=== PATIENT | female | born 1955 | race Caucasian/White ===

== ENCOUNTER 2021-02-14 18:57 | Inpatient (IN) | payer OTHER ==
[~2021-02-14] VITALS: Ht 152.4 cm; Wt 113.4 kg
[2021-02-14 19:38] LABS: HEMOGLOBIN 14.1 gm/dl (12.3-15.3); RED BLOOD COUNT 4.56 M/UL (4.00-5.10)
[2021-02-14 20:04] LABS: BUN/CREATININE RATIO 22 (0-10)
[2021-02-15] MEDS ORDERED: LATANOPROST2.5 ML OP (02:35)
[2021-02-15] MEDS ORDERED: TIMOPTIC 0.5% OP5 ML OU (02:36)
[2021-02-15] MEDS ORDERED: ALPRAZOLAM XR1 MG PO (02:37)
[2021-02-15] MEDS ORDERED: GABAPENTIN300 MG PO (02:41)
[2021-02-15] MEDS ORDERED: HYDROCHLOROTH12.5 MG PO (02:42)
[2021-02-15] MEDS ORDERED: MIRAPEX ER3 MG PO (02:46)
[2021-02-15] MEDS ORDERED: TIROSINT50 MCG PO (02:46)
[2021-02-15] MEDS ORDERED: ELAVIL 50 MG TA50 MG PO (02:48)
[2021-02-15] MEDS ORDERED: MYRBETRIQ50 MG PO (02:48)
[2021-02-15] MEDS ORDERED: POTASSIUM CHLO20 ME1 PO (02:55)
[2021-02-15] MEDS ORDERED: DULOXETINE HCL60 MG PO (03:12)
[2021-02-15] MEDS ORDERED: TOPAMAX 25 MG T25 MG PO (03:12)
[2021-02-15] MEDS ORDERED: ESZOPICLONE3 MG PO (03:14)
[2021-02-15] MEDS ORDERED: PREMARIN VAG CR30 GM EXT (03:15)
[2021-02-15] MEDS ORDERED: ZANAFLEX 4 MG TA4 MG PO (03:16)
[2021-02-15] MEDS ORDERED: DITROPAN 5 MG TA5 MG PO (03:17)
[2021-02-15] MEDS ORDERED: MAGNESIUM250 MG PO (03:36)
[2021-02-15] MEDS ORDERED: FISH OIL 1,2001 EAC1 PO (03:37)
[2021-02-15] MEDS ORDERED: CALCIUM CITRAT250 MG PO (03:39)
[2021-02-15] MEDS ORDERED: L-LYSINE500 MG PO (03:39)
[2021-02-15] MEDS ORDERED: FOLIC ACID0.8 MG PO (03:40)
[2021-02-15] MEDS ORDERED: VITAMIN C500 M4 PO (03:41)
[2021-02-15] MEDS ORDERED: VITAMIN B-121000 MCG PO (03:42)
[2021-02-15] MEDS ORDERED: VITAMIN B-1100 M1 PO (03:43)
[2021-02-15] MEDS ORDERED: VITAMIN D350 MCG PO (03:44)
[2021-02-15] MEDS ORDERED: MELATONIN3 MG PO (03:52)
--- NOTE | 2021-02-16 05:38 | NUR ---
ATTEMPTED TO CALL DR RUSH X2 IN REGARDS TO PATIENT 3 BEAT RUN OF V [facility]. PATIENT AT THIS TIME RESTING IN BED ON RA WITH PULSE OX 98%, TEMP 98.7, RESP 20, TELE IN USE SINUS WITH HEART RATE IN THE 70S, AND BP 150/84. PATIENT HAS NO COMPLAINTS OF SOA OR CHEST PAIN AT THIS TIME. CALL IGHT IN REACH BED IN LOW POSITION AND SIDE RAILS ELEVATED. LEFT MESSAGE ON PROVIDERS PHONE AND AM CURRENTLY AWAITING CALL BACK IN REGARDS TO PATIENT.
[2021-02-16 07:37] LABS: HEMOGLOBIN 13.6 gm/dl (12.3-15.3); RED BLOOD COUNT 4.67 M/UL (4.00-5.10); WHITE BLOOD COUNT 8.7 K/UL (4.5-11.0)
[2021-02-16 10:35] LABS: BUN/CREATININE RATIO 23 (0-10)
[2021-02-17 11:17] LABS: RED BLOOD COUNT 5.13 M/UL (4.00-5.10)
[2021-02-17 11:20] LABS: HEMOGLOBIN 15.7 gm/dl (12.3-15.3); WHITE BLOOD COUNT 13.1 K/UL (4.5-11.0)
[2021-02-17 12:00] LABS: BUN/CREATININE RATIO 27 (0-10)
--- NOTE | 2021-02-17 13:11 | NUR ---
[id number] CALLED NEUROLOGY OFFICE REGAURDING PTS CONDITION, DR HOU IN [facility] OFFICE, CALLED DR LAYTON AND LEFT MESSAGE ON HIS CELL PHONE
--- NOTE | 2021-02-17 18:05 | NUR ---
DR LAYTON HERE SEEN PT, NOTE IN PROGRESS NOTE OF CHART
--- NOTE | 2021-02-18 05:14 | NUR ---
0200 02/18/21 PATIENT WAKES UP AND IS ALERT AND ORIENTED. REMOVE BIPAP AND PATIENT BEGINS TO TALK WITH MYSELF AND OTHER NURSING STAFF. PATIENT STATES THAT SHE KNEW WHAT HAS BEEN GOING ON TODAY AND ANSERED QUESTIONS APPROPRIATELY. PATIENT DOES HOWEVER HAVE EXTREME DYSPHASIA AND STUTTERS HORRIBLE WITH TRYING TO SPEAK. PATIENT ALSO STATES THAT SHE IS HUNGRY. GAVE PATIENT A SIP OF WATER AND PATIENT SWALLOWED WATER FINE WITH NO COUGH NOTED. PATIENT WAS ALSO ABLE TO EAT PUDDING WITH NO COUGH NOTED. PATIENT COULD STICK OUT HER TOUNGE MOVE IT FROM SIDE TO SIDE AND UP AND DOWN. PATIENT GAG REFLEX WAS INTACT WHILE MOUTH CARE WAS PROVIDED. PATIENT THEN TOOK A FEW BITES OF TURKEY SANDWHICH. NO FACIAL DROOP WAS NOTED. PATIENT ALSO HAD VERY JERKY AND UNCORDINATED MOVMENTS WHEN ATTEMPTING TO FEED HERSELF A SADWHICH. PATIENT REQUEST THAT WE CALL HER AND NOTIFY THEM THAT SHE IS NOW ABLE TO TALK AGAIN. AFTER AWHILE PATIENT STATES THAT SHE IS TIRED. CPAP FROM HOME WAS PLACED ON PATIENT. CALL LIGHT IN REACH BED IN LOW POSITION AND SIDE RAILS ELEVATED. TELEMTRY IN USE SINUS 90S O2 SAT WAS 96%
[2021-02-18 10:40] LABS: HEMOGLOBIN 15.4 gm/dl (12.3-15.3); WHITE BLOOD COUNT 12.6 K/UL (4.5-11.0)
[2021-02-18 11:10] LABS: BUN/CREATININE RATIO 34 (0-10)
[2021-02-19 05:11] LABS: HEMOGLOBIN 15.6 gm/dl (12.3-15.3); RED BLOOD COUNT 5.09 M/UL (4.00-5.10); WHITE BLOOD COUNT 15.1 K/UL (4.5-11.0)
[2021-02-19 05:42] LABS: BUN/CREATININE RATIO 36 (0-10)
[2021-02-21 11:06] LABS: BUN/CREATININE RATIO 39 (0-10)
[2021-02-21 13:45] LABS: HEMOGLOBIN 15.5 gm/dl (12.3-15.3); RED BLOOD COUNT 5.16 M/UL (4.00-5.10)
[2021-02-22 09:04] LABS: HEMOGLOBIN 17.3 gm/dl (12.3-15.3); RED BLOOD COUNT 5.66 M/UL (4.00-5.10); WHITE BLOOD COUNT 10.4 K/UL (4.5-11.0)
[2021-02-22 10:19] LABS: BUN/CREATININE RATIO 40 (0-10)
--- NOTE | 2021-02-23 15:19 | NUR ---
02/23/21 1200 OLOP EVAL BEING DONE
[2021-02-26 12:07] LABS: HEMOGLOBIN 15.9 gm/dl (12.3-15.3); RED BLOOD COUNT 5.11 M/UL (4.00-5.10); WHITE BLOOD COUNT 18.4 K/UL (4.5-11.0)
[2021-02-26 12:35] LABS: BUN/CREATININE RATIO 34 (0-10)
[2021-02-27 08:15] LABS: HEMOGLOBIN 15.5 gm/dl (12.3-15.3); RED BLOOD COUNT 5.04 M/UL (4.00-5.10); WHITE BLOOD COUNT 14.1 K/UL (4.5-11.0)
--- NOTE | 2021-03-01 11:53 | NUR ---
TELEHEALTH VISIT WITH OLAP CONDUCTED AT BEDSIDE. OLAP NURSE STATED SHE WOULD CONSULT WITH MD AND NOTIFY NURSE OF RESULTS.
[2021-03-01 12:45] LABS: RED BLOOD COUNT 4.92 M/UL (4.00-5.10)
[2021-03-01 12:51] LABS: WHITE BLOOD COUNT 9.9 K/UL (4.5-11.0)
[2021-03-01 13:24] LABS: BUN/CREATININE RATIO 25 (0-10)
--- NOTE | 2021-03-01 23:31 | NUR ---
Went to take the patient her medication at 2121, when she insisted that I was giving them to her late. She wanted to know why I kept giving her the medications late, or not giving them to her at all. I tried to explain to the patient that they were not late. She said that the first night she got here they didn't give them to her and the second night she was here, she got them late. I tried to explain, again, that I have only been her nurse for the past two nights and that both nights she has gotten her medication at their scheduled time. The patient then asked if I "resented all patients" and if I would care more about her situation if she were "sicker than everyone else." Again I tried to calm her by explaining that I was not resentful and not trying to be rude, but that I know that I haven't given her the medications late, and that I do care about her wellbeing. She then said that she miss She insisted I "do something" to get her out of this hospital and to [place]. I explained that there is nothing that I can do to get her transfered, and that we must wait and go through the appropriate channels to do so. Patient said that I was not allowed to keep her here and asked that I call the police for her. I told her that she was in a hospital and was in no danger, so I could not call the police. I told her she was welcome to call the warehouseman. I left the room and continued to give meds to other patients. After giving medication to one patient, I come out of the room and find security at her door. The patient told the security lead that I wasn't wearing my mask in her room, I wouldn't give her the medications, and that I wouldn't let her call anyone. He then told her that she was welcome to call the warehouseman to voice her concerns, to which she said that I had never given her that option. Johanny, the tech, called the warehouseman for her. Damaris came and talked to her and allowed her to voice her concerns. I went back in and apologized for her bad experience and asked if there was anything else I could do to help her. She wanted to get up into the chair and eat so I assissted her to do so. At this time, she has no new complaints.
--- NOTE | 2021-03-02 09:24 | NUR ---
PATIENT AGITATED THIS AM. STATED THAT I THE NURSE HAD REARRANGED EVERYTHING IN HER ROOM AND SHE DIDN'T WANT ME BACK IN THERE. ATTEMPTED TO REDIRECT PATIENT WITHOUT SUCCESS. REAPPROACHED PATIENT AND PATIENT WAS FRIENDLY AND ACCEPTING OF NURSE. CONFUSION NOTED. PATIENT STATED THAT HER WAS DOWNSTAIRS AND SHE WANTED HIM IN HER ROOM BEFORE SHE WOULD ALLOW US TO GIVE HER ANTYHING OR DO ANYTHING FOR HER. ADVISED PATIENT THAT HER WAS NOT IN THE FACILITY. PATIENT ASKED ME TO LEAVE ROOM.
[2021-03-03 05:36] LABS: HEMOGLOBIN 14.1 gm/dl (12.3-15.3); RED BLOOD COUNT 4.65 M/UL (4.00-5.10); WHITE BLOOD COUNT 8.5 K/UL (4.5-11.0)
[2021-03-03 06:19] LABS: BUN/CREATININE RATIO 21 (0-10)
--- NOTE | 2021-03-04 11:12 | NUR ---
APPOINTMENT MADE WITH PATIENTS MENTAL HEALTH PHYSICIAN. COULD NOT GET IN UNTIL MAY OF 2021. OFFICE WILL TRY TO WORK PATIIENT IN FOR MARCH REGARDING THE CIRCUMSTANCES OF HOSPITAL VISIT. PATIENT AND AWARE. COULD NOT GET APPOINTMENT SCHEDULED WITH PCP. OFFICE ONLY TAKING CALL BACKS. NUMBER WOULD NOT ACCEPT PATIENTS NUMBER. INSTRUCTED PATIENT AND TO MAKE FOLLOW UP APPOINTMENT WITH PCP AND ATTEMPT TO GET EARLIER APPOINTMENT WITH MENTAL HEALTH PHYSICIAN, IF ANY OTHER ISSUES GO TO EMERGENCY ROOM. PATIENT LIVES IN [place], PATIENT AND VERBALIZED UNDERSTANDING. NIRMAL CASTOR BSN/RN
--- NOTE | 2021-03-04 11:43 | NUR ---
1000 Patient has refused to let staff check her V/S'S this AM. AM medications taken without difficulty. Patient has screamed at staff several times this AM. Stated she heard her friend, Ching, in hallway & wanted to talk to her. Explained to patient that her friend was not here, she screamed that we were lying to her. She stated she heard her voice & she knew she was here. here at bedside.
== END 2021-03-04 11:43 | disposition home or self-care (01) | DRG 56 ==
LOC: ER1 18:57 → CDU 21:37 → M/S 21:37
PROVIDERS: Emergency Medicine; Internal Medicine; Internal Medicine Infectious Disease; ADMIT Internal Medicine
PROC: B24BZZ4 Ultrasonography of Heart with Aorta, Transesophageal (ICD-10-PCS; 2021-02-15)
PROC: 4A10X4Z Monitoring of Central Nervous Electrical Activity, External Approach (ICD-10-PCS; 2021-02-16)
PROC: 0DH67UZ Insertion of Feeding Device into Stomach, Via Natural or Artificial Opening (ICD-10-PCS; principal; 2021-02-17)
PROC: 3E0G76Z Introduction of Nutritional Substance into Upper GI, Via Natural or Artificial Opening (ICD-10-PCS; 2021-02-17)
DX: G31.83 Neurocognitive disorder with Lewy bodies (principal); G92.8 Other toxic encephalopathy; F02.81 Dementia in other diseases classified elsewhere, unspecified severity, with behavioral disturbance; N30.00 Acute cystitis without hematuria; E66.2 Morbid (severe) obesity with alveolar hypoventilation; Z20.822 Contact with and (suspected) exposure to COVID-19; J98.11 Atelectasis; R47.01 Aphasia; Z68.41 Body mass index [BMI] 40.0-44.9, adult; R29.700 NIHSS score 0; I10 Essential (primary) hypertension; M19.90 Unspecified osteoarthritis, unspecified site; E03.9 Hypothyroidism, unspecified; G47.33 Obstructive sleep apnea (adult) (pediatric); G25.81 Restless legs syndrome; F41.9 Anxiety disorder, unspecified; F42.9 Obsessive-compulsive disorder, unspecified; G47.00 Insomnia, unspecified; F32.A Depression, unspecified; G43.909 Migraine, unspecified, not intractable, without status migrainosus; Z96.653 Presence of artificial knee joint, bilateral; G40.909 Epilepsy, unspecified, not intractable, without status epilepticus; Z88.2 Allergy status to sulfonamides; Z98.51 Tubal ligation status; Z87.442 Personal history of urinary calculi; Z82.0 Family history of epilepsy and other diseases of the nervous system
CPT/HCPCS: ECHO; 36415; 36600; 70450; 70544; 70551; 71045; 80048; 80053; 81001; 82550; 82553; 82803; 83605; 83735; 83874; 84100; 84132; 84439; 84443; 84484; 85025; 85610; 85730; 86140; 87040; 87077; 87086; 87186; 93005; 93306; 93880; 95816; 96372; 97116-GP-CQ; 97161; 97530-GP-CQ; 99285; G0378; J0360; J0696; J1630; J1650; J2060; J2185; J3480; U0002